=== PATIENT | female | born 1950 | race Caucasian/White ===

== ENCOUNTER → 2023-08-03 11:57 | Outpatient (REF) | payer MEDICARE, OTHER, SELFPAY | LOC: HWWDC 11:57 | PROVIDERS: ATTENDING PHYSICIAN Internal Medicine | DX: Z12.31 Encounter for screening mammogram for malignant neoplasm of breast (principal) | CPT/HCPCS: 77063; 77067 ==

== ENCOUNTER 2023-08-24 07:59 | Emergency (ER) | payer MEDICARE, OTHER, SELFPAY ==
[2023-08-24 08:04] VITALS: BP 153/105
--- NOTE | 2023-08-24 08:36 | ED.GENMED ---
History of Present Illness
General
Chief Complaint: Chest Pain
Source: patient
Exam Limitations: none
Time Seen by Provider: 08/24/23 08:23
History of Present Illness
History of Present Illness:
See MDM
Past History
Past History
ED Past Medical History: Arrthythmia (Atrial fibrillation, status post ablation), GERD, HTN and Other (Diverticulosis, Osteoarthritis)
ED Past Surgical History: Cardiac (A. fib ablation), Cholecystectomy, Gynecological (D. and E., endometrial ablation 2000) and Tonsilectomy
Social History
Tobacco: Non-smoker
Alcohol: Former
Drug: None
Personal:
Living: with family
Employment: Employed
Family History
Family History: Hypertension; Negative Early CAD or CAD (Father of an apparent OR at age 88)
Phy Exam
Physical Exam
Physical Exam:
See MDM
Scores
Heart Score for Chest Pain Patients
STEMI patient?: No
History: Slightly or Non-Suspicious
ECG: Normal
Age: >/= 65 years
Risk Factors: 1 or 2 Risk Factors
Troponin: </= Normal Limit
Heart Score for Chest Pain Patients: 3
Heart Score Risk: 2.5% MACE over next 6 weeks
Course
Orders/Labs/Results
Orders:
Orders
08/24/23 08:00
Electrocardiogram (*1) Urgent
Reason for Study: Chest Pain
EKG- Treatment ONCE
08/24/23 08:36
CR Chest - 2 Views Urgent
Comment:
Reason For Exam: intermittent chest pain
08/24/23 08:51
Complete Blood Count/With Diff Urgent
Comprehensive Metabolic Panel Urgent
Troponin I Urgent
Abnormal Lab Results
08/24/23
08:51
Glucose 117 H mg/dl
(70-99)
08/24/23 08:51
08/24/23 08:51
Vital Signs
Initial and Last Documented VS:
Initial Vital Signs
Temp Pulse Resp BP Pulse Ox
98.6 F 72 20 153/105 98
08/24/23 08:04 08/24/23 08:04 08/24/23 08:04 08/24/23 08:04 08/24/23 08:04
Last Documented Vital Signs
Temp Pulse Resp BP Pulse Ox
98.6 F 72 20 153/105 96
08/24/23 08:04 08/24/23 08:04 08/24/23 08:04 08/24/23 08:04 08/24/23 08:45
MDM/Problems Addressed
Differential Diagnosis Includes:
HPI and MDM Narrative:
72-year-old female presenting with intermittent chest pain since last night. Patient states she could not sleep because of she get random bits of pain lasting for only few seconds at a time. Patient started to get nervous. Symptoms are not
related to exertion. Patient states she had recent knee replacement over the past 2 years and had a full cardiac workup which was negative.
Physical exam
General: Well appearing and non-toxic
HEENT: protecting airway
Neck: appears supple
CV: No evidence of cyanosis. Regular rate and rhythm.
Resp: No accessory muscle use
Abd: Non-distended
Extremities: No deformities. No pitting edema to lower extremities
Neuro: alert
Psych: Normal affect
Skin: Intact
Problems Addressed including Acute and Chronic Conditions affecting care:
1. Chest pain
Acuity: acute
Prognosis: stable
Details: Symptoms appear to be inconsistent with ACS. Will obtain troponin and chest x-ray. Patient has cardiac follow-up in 3 weeks
Updates
Blood work without significant abnormality other than a very mild elevated glucose. Discussed having this rechecked by PCP and discuss hemoglobin A1c. In regards to her intermittent chest discomfort, discussed having her tailercpa to further
assess this in regards to stress, echo and Holter. She has an appointment in 3 weeks
Differential Diagnosis (but not limited to): Noncardiac chest pain, musculoskeletal pain, ACS
Testing considered: 2 troponin rule out but patient currently symptom-free
Drug therapy (if applicable): OTC meds, please see d/c instruction regarding Rx drugs
Amount and/or Complexity of Data Reviewed
Clinical info obtained from: Patient
External data reviewed: N/A
Labs I independently reviewed (but not limited to): Troponin normal
Radiology: X-ray independently reviewed: Chest x-ray clear
Pulse Ox: not hypoxic
EKG independently reviewed: Sinus rhythm, normal axis, no STEMI
Manufacturing Assistant: N/A
Critical Care: N/A
Risk of Complication:
Social Determinants of health: Good social support
Discussed with other providers: N/A
Escalation of Care includes Admit/Obs: After being observed in the Emergency Department, pt stable for discharge.
Occasional wrong word or 'sound a like' substitutions may have occurred due to the inherent limitations of voice recognition software. Read the chart carefully and recognize, using context, where substitutions have occurred.
*Critical Care Note
Total Time (30-74mins, 75-104mins- exclusive of procedures): Not Applicable
ED Attending Note
-
Portions of this chart may have been created with voice recognition software.� Occasional wrong word or��sound alike� substitutions may have occurred due to the inherent limitations of voice recognition software.
Discharge Plan
Departure
Patient Disposition: Home (Routine Discharge)
Date of Disposition: 08/24/23
Time of Disposition: 09:54
Patient with high blood pressure during this ER visit?: Yes
Discharge Problem:
Chest pain
Instructions: BLOOD PRESSURE
Prescriptions:
No Action
metoprolol succinate 50 MG tablet extended release 24 hr
50 mg PO DAILY
coenzyme Q10 100 MG capsule
100 mg PO DAILY
Hold Instructions: Resume on 03/08/22.
omega 2-wfh-jhz-fish oil [Fish Oil] 1 EACH capsule
2 ea PO DAILY
Hold Instructions: Resume on 03/08/22.
mupirocin 2 % ointment
1 applic topical BID Qty: 1 0RF
meloxicam 15 mg tablet
15 mg PO DAILY Qty: 14 0RF
Rx Instructions:
take with food
cefadroxil 500 mg capsule
500 mg PO BID Qty: 14 0RF
Rx Instructions:
*Take w/ food
*Take w/ probiotic
diazepam [Valium] 2 mg tablet
2 mg PO BID Qty: 10 0RF
dexamethasone 4 mg tablet
4 mg PO BID Qty: 6 0RF
Rx Instructions:
take with food
oxycodone 5 mg tablet
5 - 10 mg PO Q6HPRN PRN (Reason: 1 tab moderate-2 tabs severe pain) Qty: 30 0RF
Rx Instructions:
Dx TKA
ongoing therapy
Saccharomyces boulardii [Florastor] 250 mg capsule
250 mg PO BID Qty: 1 0RF
esomeprazole magnesium [Nexium] 20 mg Capsule,Delayed Release(Dr/Ec)
20 mg PO DAILY
acetaminophen [Acetaminophen Extra Strength] 500 mg tablet
1,000 mg PO Q6H Qty: 60 0RF
Rx Instructions:
DO NOT exceed >4000 mg daily.
aspirin 325 mg capsule
325 mg PO DAILY Qty: 30 0RF
Rx Instructions:
Take daily x4 weeks for blood clot prevention; then resume Aspirin 81 mg daily.
docusate sodium [Colace] 100 mg capsule
100 mg PO BID Qty: 30 0RF
senna 8.6 mg capsule
17.2 mg PO BID Qty: 30 0RF
hydrochlorothiazide 12.5 MG capsule
12.5 mg PO DAILY Qty: 1 0RF
Rx Instructions:
HOLD if systolic blood pressure <130 while on Oxycodone.
Referrals:
Kera Llamas MD [Family Provider] -
Activity Restrictions/Additional Instructions:
Please return for any worsening symptoms.
You may return at any time if you have further concerns.
Please follow up with your doctor at the first available appointment, preferably this week. Please discuss your elevated blood sugar.
Please keep your cardiology appointment in 3 weeks. Please discuss your symptoms.
Thank you for choosing [facility].
Interventions
Interventions:
*Risk Screen - Suicide Last Done: 08/24/23 08:45
*General Assessment Last Done: 08/24/23 08:45
*Neglect/Abuse Screening Last Done: 08/24/23 08:45
ED- Fall Risk Assessment Last Done: 08/24/23 08:45
*ED COVID-19 Vaccine History Last Done: 08/24/23 08:45
ED- Cardiac Assessment Last Done: 08/24/23 08:45
Discharge Date and Time
Print Language: ESTONIAN
[2023-08-24 08:45] VITALS: BMI 27.7
[2023-08-24 09:00] LABS: % Basophils 0.9 % (0-2); % Eosinophils 2.9 % (0-6); % Immature Granulocytes 0.3 % (0-0.5); % Lymphocytes 24.5 % (20.5-51.1); % Monocytes 7.4 % (1.7-9.3); Absolute Basophils 0.1 10^3/uL (0-0.2); Absolute Eosinophils 0.2 10^3/uL (0-0.7); Absolute Lymphocytes 1.9 10^3/uL (1.2-3.4); Absolute Monocytes 0.6 10^3/uL (0.1-0.6); Hematocrit 40.2 % (37.0-47.0); Hemoglobin 13.5 g/dL (12.0-16.0); Mean Corp Hgb Conc. 33.6 g/dL (33.0-37.0); Mean Corpuscular Hgb 28.5 pg (27.0-31.0); Mean Platelet Volume 9.6 fL (7.4-10.4); Nucleated Red Blood Cells % 0 %; Platelet Count 325 10^3/uL (130-400); Red Blood Cell Count 4.73 10^6/uL (4.20-5.40); Red Cell Dist. Width 14.3 % (11.5-14.5); White Blood Cell Count 7.8 10^3/uL (4.8-10.8)
[2023-08-24 09:15] LABS: ALT (SGPT) 22 U/L (0-35); AST (SGOT) 27 U/L (14-36); Albumin 4.9 g/dl (3.5-5.0); Alkaline Phosphatase 94 U/L (38-126); Blood Urea Nitrogen 16 mg/dl (7-17); Carbon Dioxide 29 mmol/L (22-30); Chloride 103 mmol/L (98-107); Glucose 117 mg/dl (70-99); Potassium 4.1 mmol/L (3.5-5.1); Sodium 140 mmol/L (135-145); Total Bilirubin 0.7 mg/dl (0.2-1.3); eGFR > 60.00
[2023-08-24 09:27] LABS: Troponin I < 0.012 ng/ml
== END 2023-08-24 10:31 | disposition home or self-care (01) ==
LOC: EMR 07:59
PROVIDERS: EMERGENCY PHYSICIAN Student in an Organized Health Care Education/Training Program; FAMILY PHYSICIAN Internal Medicine
DX: R07.89 Other chest pain (principal); I48.91 Unspecified atrial fibrillation; K21.9 Gastro-esophageal reflux disease without esophagitis; I10 Essential (primary) hypertension; M19.90 Unspecified osteoarthritis, unspecified site; Z82.49 Family history of ischemic heart disease and other diseases of the circulatory system; Z90.49 Acquired absence of other specified parts of digestive tract
CPT/HCPCS: 99283; 71046; 80053; 84484; 85025; 93005

== ENCOUNTER → 2023-09-06 07:06 | Outpatient (REF) | payer MEDICARE, OTHER, SELFPAY | LOC: HWRCS 07:06 | PROVIDERS: ATTENDING PHYSICIAN Nuclear Medicine Nuclear Cardiology; FAMILY PHYSICIAN Internal Medicine | DX: I10 Essential (primary) hypertension (principal); R00.2 Palpitations; R07.89 Other chest pain | CPT/HCPCS: 93306 ==

== ENCOUNTER → 2023-09-13 11:01 | Outpatient (REF) | payer MEDICARE, OTHER, SELFPAY | LOC: DHCBC/DCA 11:01 | PROVIDERS: ATTENDING PHYSICIAN Nuclear Medicine Nuclear Cardiology; FAMILY PHYSICIAN Internal Medicine | DX: I10 Essential (primary) hypertension (principal); R00.2 Palpitations; R07.89 Other chest pain | CPT/HCPCS: 78452; 93017; A9500; J2785 ==

== ENCOUNTER → 2023-10-09 11:24 | Outpatient (REF) | payer MEDICARE, OTHER, SELFPAY | LOC: HWRAD 11:24 | PROVIDERS: FAMILY PHYSICIAN Internal Medicine | DX: N20.0 Calculus of kidney (principal) | CPT/HCPCS: 74176 ==

== ENCOUNTER → 2024-10-13 14:54 | Outpatient (REF) | payer MEDICARE, OTHER, SELFPAY | LOC: HWRCS 14:54 | PROVIDERS: ATTENDING PHYSICIAN Nuclear Medicine Nuclear Cardiology; FAMILY PHYSICIAN Internal Medicine | DX: R00.2 Palpitations (principal); I10 Essential (primary) hypertension; I49.1 Atrial premature depolarization; R07.89 Other chest pain; I48.0 Paroxysmal atrial fibrillation | CPT/HCPCS: 93306 ==

== ENCOUNTER → 2025-01-01 11:00 | Outpatient (REF) | payer MEDICARE, OTHER, SELFPAY | LOC: HWWDC 11:00 | PROVIDERS: ATTENDING PHYSICIAN Obstetrics & Gynecology Gynecology; FAMILY PHYSICIAN Internal Medicine | DX: Z12.31 Encounter for screening mammogram for malignant neoplasm of breast (principal) | CPT/HCPCS: 77063; 77067 ==

== ENCOUNTER 2025-02-24 11:28 | Emergency (ER) | payer MEDICARE, OTHER, SELFPAY ==
[2025-02-24 11:50] VITALS: BP 194/92
[2025-02-24 12:30] LABS: ALT (SGPT) 29 U/L (0-35); AST (SGOT) 30 U/L (14-36); Albumin 4.8 g/dl (3.5-5.0); Alkaline Phosphatase 94 U/L (38-126); Blood Urea Nitrogen 14 mg/dl (7-17); Calcium 9.5 mg/dl (8.4-10.2); Carbon Dioxide 28 mmol/L (22-30); Chloride 105 mmol/L (98-107); Glucose 103 mg/dl (70-99); Lipase 106 U/L (23-300); Potassium 4.1 mmol/L (3.5-5.1); Sodium 140 mmol/L (135-145); Total Protein 7.8 g/dl (6.3-8.2); eGFR > 60.00
[2025-02-24 12:32] LABS: Urine Character Clear (Clear)
--- NOTE | 2025-02-24 12:37 | ED.GENMED ---
History of Present Illness
General
Chief Complaint: Back Pain
Source: patient
Exam Limitations: none
Time Seen by Provider: 02/24/25 12:27
History of Present Illness
History of Present Illness:
74-year-old female complaining of right flank pain rating to the back. Some mild nausea. No fever or chills. No urinary symptoms. No change in bowels. History of kidney stones but feels slightly different. No pain management at home. Symptoms
for the last week or so intermittently but slightly worse overnight
Past History
Past History
ED Past Medical History: Arrthythmia (Atrial fibrillation, status post ablation), GERD, HTN and Other (Diverticulosis, Osteoarthritis)
ED Past Surgical History: Cardiac (A. fib ablation), Cholecystectomy, Gynecological (D. and E., endometrial ablation 2000) and Tonsilectomy
Social History
Tobacco: Non-smoker
Alcohol: Former
Drug: None
Personal:
Living: with family
Employment: Employed
Family History
Family History: Hypertension; Negative Early CAD or CAD (Father of an apparent IA at age 88)
Review of Systems
Review of Systems
All Other Systems: Not applicable
Constitutional: Denies fever or chills
Respiratory: Reports no symptoms
Cardiac: Reports no symptoms
: Denies dysuria or frequency
Phy Exam
Physical Exam
Physical Exam:
GENERAL: Alert and oriented in no apparent distress
EYE: Orbits normal.
NECK: Supple
CARDIAC: Regular rate and rhythm without any obvious murmurs.
LUNGS: Clear breath sounds,normal
ABDOMEN: Soft, mild tenderness towards the right mid flank. Mild right CVA tenderness. No rebound or guarding no mass or hernia
NEUROLOGICAL: Alert and oriented , grossly non-focal
SKIN: Warm and dry
PSYCH: Normal and appropriate interaction.
Course
Orders/Labs/Results
Orders:
Orders
02/24/25 11:54
CT Abd/pel Without Iv Or Oral Urgent
Comment:
Reason For Exam: flank pain
02/24/25 12:01
Complete Blood Count/With Diff Urgent
Comprehensive Metabolic Panel Urgent
Lipase Urgent
Urinalysis Reflex To Culture Urgent
Date Specimen was Collected: 02/24/25
Time Specimen was Collected: 11:54
Urine Microscopic Reflex Cult Urgent
Urine Culture Urgent
MYRIAM Source: U
Specimen Description:
Date Specimen was Collected: 02/24/25
Time Specimen was Collected: 11:54
Abnormal Lab Results
02/24/25
12:01
MCHC 32.5 L g/dL
(33.0-37.0)
MPV 10.6 H fL
(7.4-10.4)
Glucose 103 H mg/dl
(70-99)
Leukocyte Esterase Rfl 1+ A
(Negative)
Urine Albumin (Reflex) 2+ A
(Neg - Trace)
02/24/25 12:01
02/24/25 12:01
Vital Signs
Initial and Last Documented VS:
Initial Vital Signs
Temp Pulse Resp BP Pulse Ox
98.3 F 58 15 194/92 96
02/24/25 11:50 02/24/25 11:50 02/24/25 11:50 02/24/25 11:50 02/24/25 11:50
Last Documented Vital Signs
Temp Pulse Resp BP Pulse Ox
97.8 F 62 20 188/93 96
02/24/25 14:35 02/24/25 14:35 02/24/25 14:35 02/24/25 15:40 02/24/25 14:35
MDM/Problems Addressed
Differential Diagnosis Includes:
Patient describing right flank pain would be consistent with kidney stone. History of cholecystectomy. Doubt appendicitis but in the differential. May be muscular skeletal. Workup in progress. Patient is nontoxic. Nothing clinically to support
an infectious issue offered pain management but will hold off for now
*Radiology
Radiology exam reviewed: radiology read reviewed (Nonobstructing tiny right renal calculus. No obstruction. Small right cyst)
*Pulse Oximetry
SaO2: 96
Oxygen Mode of Delivery: Room air
Patient hypoxic: no
*Critical Care Note
Total Time (30-74mins, 75-104mins- exclusive of procedures): Not Applicable
Data Reviewed
Review of Other/Old Records Reveals: Labs, Records and Testing
Update Note
Update Note:
Patient has remained stable and nontoxic. Urinalysis unremarkable. No's. Highly doubt acute vascular issue. Stable for discharge to follow-up
ED Attending Note
-
Portions of this chart may have been created with voice recognition software.� Occasional wrong word or��sound alike� substitutions may have occurred due to the inherent limitations of voice recognition software.
Discharge Plan
Departure
Patient Disposition: Home (Routine Discharge)
Date of Disposition: 02/24/25
Time of Disposition: 15:22
Patient with high blood pressure during this ER visit?: Yes
Discharge Problem:
Right flank pain
Instructions: Flank pain - ED (DC), BLOOD PRESSURE
Prescriptions:
No Action
metoprolol succinate 50 MG tablet extended release 24 hr
50 mg PO DAILY
coenzyme Q10 100 MG capsule
100 mg PO DAILY
omega 3-yux-gdr-fish oil [Fish Oil] 1 EACH capsule
2 ea PO DAILY
mupirocin 2 % ointment
1 applic topical BID Qty: 1 0RF
meloxicam 15 mg tablet
15 mg PO DAILY Qty: 14 0RF
Rx Instructions:
take with food
cefadroxil 500 mg capsule
500 mg PO BID Qty: 14 0RF
Rx Instructions:
*Take w/ food
*Take w/ probiotic
diazepam [Valium] 2 mg tablet
2 mg PO BID Qty: 10 0RF
dexamethasone 4 mg tablet
4 mg PO BID Qty: 6 0RF
Rx Instructions:
take with food
oxycodone 5 mg tablet
5 - 10 mg PO Q6HPRN PRN (Reason: 1 tab moderate-2 tabs severe pain) Qty: 30 0RF
Rx Instructions:
Dx TKA
ongoing therapy
Saccharomyces boulardii [Florastor] 250 mg capsule
250 mg PO BID Qty: 1 0RF
esomeprazole magnesium [Nexium] 20 mg Capsule,Delayed Release(Dr/Ec)
20 mg PO DAILY
acetaminophen [Acetaminophen Extra Strength] 500 mg tablet
1,000 mg PO Q6H Qty: 60 0RF
Rx Instructions:
DO NOT exceed >4000 mg daily.
aspirin 325 mg capsule
325 mg PO DAILY Qty: 30 0RF
Rx Instructions:
Take daily x4 weeks for blood clot prevention; then resume Aspirin 81 mg daily.
docusate sodium [Colace] 100 mg capsule
100 mg PO BID Qty: 30 0RF
senna 8.6 mg capsule
17.2 mg PO BID Qty: 30 0RF
hydrochlorothiazide 12.5 MG capsule
12.5 mg PO DAILY Qty: 1 0RF
Rx Instructions:
HOLD if systolic blood pressure <130 while on Oxycodone.
Referrals:
Kera Llamas MD [Family Provider, Internal Medicine] - Follow up in 2-3 days
Interventions
Interventions:
*General Assessment Last Done: 02/24/25 11:50
*Neglect/Abuse Screening Last Done: 02/24/25 11:50
*ED COVID-19 Vaccine History Last Done: 02/24/25 11:50
*ED Influenza Vaccine History Last Done: 02/24/25 11:50
*Nursing Disposition Last Done: 02/24/25 15:40
Discharge Date and Time
Discharge Date/Time: 02/24/25 15:41
Print Language: CYPRIOT
[2025-02-24 14:35] VITALS: BP 206/94
[2025-02-24 15:08] LABS: Urine Squamous Cell 0-2 /LPF (Few)
[2025-02-24 15:09] LABS: Urine Red Blood Cell 0-2 /HPF (0-2)
[2025-02-24 15:21] LABS: Hematocrit 43.4 % (37.0-47.0); Hemoglobin 14.1 g/dL (12.0-16.0); Mean Corp Hgb Conc. 32.5 g/dL (33.0-37.0); Mean Corpuscular Volume 88.2 fL (81.0-99.0); Nucleated Red Blood Cells % 0 %; Platelet Count 327 10^3/uL (130-400); Red Cell Dist. Width 14.0 % (11.5-14.5)
[2025-02-24 15:40] VITALS: BP 188/93
== END 2025-02-24 15:41 | disposition home or self-care (01) ==
LOC: EMR 11:28
PROVIDERS: Emergency Medicine; EMERGENCY PHYSICIAN Emergency Medicine; FAMILY PHYSICIAN Internal Medicine
DX: R10.A1 Flank pain, right side (principal); I48.91 Unspecified atrial fibrillation; I10 Essential (primary) hypertension; K21.9 Gastro-esophageal reflux disease without esophagitis; M19.90 Unspecified osteoarthritis, unspecified site; Z87.442 Personal history of urinary calculi; Z82.49 Family history of ischemic heart disease and other diseases of the circulatory system
CPT/HCPCS: 99284; 74176; 80053; 81003; 81015; 83690; 85025; 87086